=== PATIENT | male | born 1965 | race Caucasian/White ===

== ENCOUNTER 2019-06-25 14:11 | Emergency (ER) | payer MEDICAID ==
[~2019-06-25] VITALS: Ht 182.9 cm; Wt 81.8 kg
[2019-06-25 14:27] VITALS: BP 162/97
[2019-06-25] MEDS ORDERED: FLUORESCEIN OPHTH TEST STRIP. ONE (14:40)
[2019-06-25] MEDS ORDERED: TETRACAINE 0.5% OPHTH SOLUTION 4ML BOTTLE. ONE (14:41)
[2019-06-25] MEDS ORDERED: ERYT1OIN6 RIGHTEYE (15:14)
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
== END 2019-06-25 15:19 | disposition home or self-care (01) ==
LOC: ER 14:11
DX: T15.91XA Foreign body on external eye, part unspecified, right eye, initial encounter (principal); X58.XXXA Exposure to other specified factors, initial encounter; Y93.89 Activity, other specified; Y92.89 Other specified places as the place of occurrence of the external cause; Y99.8 Other external cause status
CPT/HCPCS: 99283

== ENCOUNTER 2020-10-18 09:08 | Emergency (ER) | payer MEDICAID ==
[~2020-10-18] VITALS: Ht 185.4 cm; Wt 80.9 kg
[~2020-10-18 09:08] MED LIST: ERYT1OIN6 RIGHTEYE
[2020-10-18] MEDS ORDERED: methylPREDNISolone SOD SUCC PF 125 MG/2 ML VIAL. IV ONE (09:45)
[2020-10-18] MEDS ORDERED: IPRATRPIUM/ALBUTEROL 0.5/2.5MG 3 ML NEBU. NEB ONE (09:45)
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
[2020-10-18 09:58] LABS: BASO % 0 % (0-3); EOS # 0.4 x10^3/uL (0.0-0.7); EOS % 7 % (0-3); HEMATOCRIT 39.7 % (39.0-53.0); HEMOGLOBIN 13.7 g/dL (13.0-17.5); LYMPH # 0.9 x10^3/uL (1.0-4.8); LYMPH % 18 % (24-48); MEAN CORPUSCULAR HEMOGLOBIN 33 pg (25-35); MEAN CORPUSCULAR HGB CONC 35 g/dL (31-37); MEAN CORPUSCULAR VOLUME 94 fL (79-100); MONO # 0.4 x10^3/uL (0.0-1.1); MONO % 8 % (0-9); NEUT # 3.1 x10^3/uL (1.8-7.7); NEUT % 66 % (31-73); PLATELET COUNT 202 x10^3/uL (140-400); RED BLOOD COUNT 4.22 x10^6/uL (4.30-5.70); RED CELL DISTRIBUTION WIDTH 12.4 % (11.5-14.5); WHITE BLOOD COUNT 4.7 x10^3/uL (4.0-11.0)
--- NOTE | 2020-10-18 10:12 | RAD ---
XR CHEST 1V CLINICAL INDICATIONS: Reason: COUGH FOR 4 DAYS COMPARISON: None available. Findings: No acute lung infiltrate or pleural effusion or pulmonary edema or lung mass or pneumothora x is seen. The heart size, pulmonary vasculature, mediastinum and both sergey are unremarkable. IMPRESSION: No acute radiographic abnormality is seen. Electronically signed by: Lebron Beckett MD (10/18/2020 10:10 AM) [id number]
[2020-10-18 11:04] LABS: CREATININE 1.1 mg/dL (0.7-1.3); GFR 69.5; POTASSIUM 3.9 mmol/L (3.5-5.1)
[2020-10-18 11:08] LABS: ALBUMIN 3.8 g/dL (3.4-5.0); ALBUMIN/GLOBULIN RATIO 1.3 (1.0-1.7); TOTAL BILIRUBIN 0.3 mg/dL (0.2-1.0); TOTAL PROTEIN 6.8 g/dL (6.4-8.2)
[2020-10-18] MEDS ORDERED: DOXY100C2 PO (11:20)
[2020-10-18] MEDS ORDERED: PRED20TA PO (11:20)
[2020-10-18] MEDS ORDERED: ALBU2.5V8 IH (11:20)
[2020-10-18 12:12] VITALS: BP 144/90
== END 2020-10-18 12:32 | disposition home or self-care (01) ==
LOC: ER 09:08
DX: J20.9 Acute bronchitis, unspecified (principal); Z87.820 Personal history of traumatic brain injury; F17.200 Nicotine dependence, unspecified, uncomplicated
CPT/HCPCS: 36415; 71045; 80053; 83735; 85025; 94640; 96374; 99285; J2930

== ENCOUNTER 2020-10-23 16:31 | Emergency (ER) | payer MEDICAID ==
[~2020-10-23] VITALS: Ht 185.4 cm; Wt 79.5 kg
[~2020-10-23 16:31] MED LIST changes: +ALBU2.5V8 IH; +DOXY100C2 PO; +PRED20TA PO
[2020-10-23 17:43] VITALS: BP 139/92
--- NOTE | 2020-10-23 18:52 | RAD ---
EXAM: XR FINGER(S)_RIGHT 2+VIEWS 10/23/2020 6:05 PM CLINICAL INDICATION: Middle finger pain after crush injury COMPARISON: None TECHNIQUE: 3 views of the right third finger FINDINGS: There is soft tissue swelling of the third finger with an overlying bandage. No radiopaque foreign body. No acute fracture or malalignment. Old fifth metacarpal shaft fracture. IMPRESSION: Soft tissues swelling of the third finger. No acute osseous abnormality. Electronically signed by: Tressa Daniels MD (10/23/2020 6:49 PM) [id number]
[2020-10-23] MEDS ORDERED: LIDOCAINE 2% Multi-Dose 20 ML VIAL. IJ ONE (19:00)
[2020-10-23] MEDS ORDERED: HYDROcodone/APAP 5/325MG 1 TAB TABLET PO ONE (19:00)
[2020-10-23] MEDS ORDERED: CEPH500C PO (21:59)
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
== END 2020-10-23 22:07 | disposition home or self-care (01) ==
LOC: ER 16:31
DX: S61.212A Laceration without foreign body of right middle finger without damage to nail, initial encounter (principal); F17.220 Nicotine dependence, chewing tobacco, uncomplicated; X58.XXXA Exposure to other specified factors, initial encounter; Y93.89 Activity, other specified; Y92.89 Other specified places as the place of occurrence of the external cause; Y99.8 Other external cause status
CPT/HCPCS: 12002; 73140; 99283